=== PATIENT | female | born 1945 | race Caucasian/White ===

== ENCOUNTER 2019-08-30 22:52 | Emergency (ER) | payer MEDICARE, BC ==
[~2019-08-30] VITALS: Ht 170.2 cm; Wt 90.7 kg
[~2019-08-30 22:52] MED LIST: ASPIRIN-LOW81 MG ORAL; CRESTOR10 M1 ORAL; IBUPROFEN600 MG ORAL; JANUVIA25 MG ORAL; SYNTHROID125 MCG ORAL; TOPROL XL25 MG ORAL
[2019-08-30 23:05] VITALS: BP 132/69
[2019-08-30] MEDS ORDERED: HYDROcodone/Acetamin 5/325 tab ORAL ONE (23:15)
[2019-08-30] MEDS ORDERED: ACETAMINOPHEN-1 EAC1 ORAL (23:18)
[2019-08-30] MEDS ORDERED: IBUPROFEN600 MG ORAL (23:18)
--- NOTE | 2019-08-30 23:18 | Emergency Room Report ---
History of Present Illness General Chief Complaint: Pain Source: Patient Present Illness HPI 74-year-old female with a history of degenerative disc disease and left hip pain. This is a chronic problem. She normally see her doctor for injection. Because it is [place] holiday, her doctor is on vacation. She is unable to get her injection this month. Now she complained of back and left hip pain. Pain is throbbing in nature. No trauma. Pain is 8 out of 10. No fever chills but no nausea no vomiting. No incontinence of bowel or urine. Worse with movement. Better with rest. Allergies: Coded Allergies: No Known Allergies (Unverified , 01/19/14) Patient History Past Medical History: see triage record, old chart reviewed Past Surgical History: other Pertinent Family History: none Social History: Denies: smoking Now: No Immunizations: other Reviewed Nursing Documentation: PMH: Agreed; PSxH: Agreed Nursing Documentation-PMH Past Medical History: No History, Except For Hx Cardiac Problems: Yes Hx Hypertension: Yes Hx Cancer: No Hx Gastrointestinal Problems: No Hx Neurological Problems: No Review of Systems Eye: Denies: eye pain, blurred vision ENT: Denies: ear pain, nose congestion, throat swelling Respiratory: Denies: cough, shortness of breath Cardiovascular: Denies: chest pain, palpitations Gastrointestinal: Denies: abdominal pain, diarrhea, nausea, vomiting Musculoskeletal: Reports: back pain; Denies: joint pain Skin: Denies: rash Neurological: Denies: headache, numbness Endocrine: Denies: increased thirst, increased urine Hematologic/Lymphatic: Denies: easy bruising All Other Systems: negative except mentioned in HPI Physical Exam Vital Signs Date Time Temp Pulse Resp B/P (MAP) Pulse Ox O2 Delivery O2 Flow Rate FiO2 08/30/19 22:59 98.4 95 14 132/69 (90) 96 Room Air Vitals normal Sp02 EP Interpretation: reviewed, normal General Appearance: well appearing, no apparent distress, alert, obese Head: normocephalic, atraumatic Eyes: bilateral eye PERRL, bilateral eye EOMI ENT: hearing grossly normal, normal pharynx Neck: full range of motion, supple, no meningismus Respiratory: chest non-tender, lungs clear, normal breath sounds Cardiovascular #1: regular rate, rhythm, no murmur Gastrointestinal: normal bowel sounds, non tender, no mass, no organomegaly, no bruit, non-distended Musculoskeletal: back normal, normal range of motion, gait/station normal Psychiatric: mood/affect normal Medical Decision Making Diagnostic Impression: Primary Impression: Low back pain Qualified Codes: M54.5 - Low back pain ER Course Patient presents with exacerbation of lower back pain and hip pain. No fracture dislocation. No evidence of cauda equina syndrome, spinal epidural abscess or neoplastic process. Will discharge home. Explained to the patient that we do not give cortisone injection in the ER here. Last Vital Signs Date Time Temp Pulse Resp B/P (MAP) Pulse Ox O2 Delivery O2 Flow Rate FiO2 08/30/19 22:59 98.4 95 14 132/69 (90) 96 Room Air Status: improved Disposition: HOME, SELF-CARE Condition: Stable Scripts Acetaminophen With Codeine (T#3) (TYLENOL #3 TAB*) Y Tab 1 TAB ORAL Q4H PRN for For Pain, #20 TAB Prov: Mateusz Howe MD 08/30/19 Ibuprofen* (MOTRIN*) 600 Mg Tablet 600 MG ORAL THREE TIMES A DAY, #30 TAB 0 Refills Prov: Mateusz Howe MD 08/30/19 Additional Instructions: Follow-up with your doctor in 7 days. Return if symptoms worsen. Mateusz Howe MD Aug 30, 2019 23:18
[2019-08-30 23:35] VITALS: BP 132/69
== END 2019-08-30 23:35 | disposition home or self-care (01) ==
LOC: EMR 23:06
DX: M54.5 Low back pain (principal); M25.552 Pain in left hip; I10 Essential (primary) hypertension; E66.9 Obesity, unspecified; Z68.31 Body mass index [BMI] 31.0-31.9, adult
CPT/HCPCS: 99282